=== PATIENT | female | born 1985 | race African-American/Black ===

== ENCOUNTER 2017-07-24 14:21 | Emergency (ER) | payer OTHER ==
[~2017-07-24] VITALS: Ht 165.1 cm; Wt 63.5 kg
[~2017-07-24 14:21] MED LIST: ACET325T9 PO; ASPI-621 PO; AZIT250T6 PO; PRED20TA PO
[2017-07-24] MEDS ORDERED: IBUPROFEN 800 MG TABLET. PO ONE (15:15)
[2017-07-24 15:30] VITALS: BP 123/77
[2017-07-24 15:32] LABS: INFLUENZA A PATIENT POSITIVE (NEGATIVE); INFLUENZA B PATIENT NEGATIVE (NEGATIVE)
--- NOTE | 2017-07-24 15:34 | PHYS DOC ---
Past History Past Medical History: Cancer, Other Past Surgical History: , Tubal ligation, Other Smoking: Non-smoker Alcohol Use: None Drug Use: None Adult General Chief Complaint Chief Complaint: FLU SYMPTOM HPI HPI 31-year-old female patient complaining of nasal congestion and cough and myalgia with fever up to 102.4 for the last 2.5 days that gradually getting worse. Patient complaining of one episode of vomiting last night. Patient states she had sick contacts with flu at home. Patient denies diarrhea, abdominal pain, urinary symptom, . Review of Systems Review of Systems Constitutional: Reports fever and chills Eyes: Denies change in visual acuity, redness, or eye pain [] HENT: Reports shortness of breath, reports cough[] Cardiovascular: No additional information not addressed in HPI [] GI: Denies abdominal pain, bloody stools or diarrhea , reports nausea and vomiting[] : Denies dysuria or hematuria [] Musculoskeletal: Denies back pain or joint pain , reports myalgia Integument: Denies rash or skin lesions [] Neurologic: Denies headache, focal weakness or sensory changes [] Endocrine: Denies polyuria or polydipsia [] All other systems were reviewed and found to be within normal limits, except as documented in this note. Current Medications Current Medications Current Medications Medications (Trade) Dose Ordered Sig/Jenelle Start Time Stop Time Status Last Admin Dose Admin Ibuprofen (Motrin) 800 mg 1X ONCE 07/24/17 15:15 07/24/17 15:17 DC 07/24/17 15:15 800 MG Allergies Allergies Allergies Coded Allergies Type Severity Reaction Last Updated Verified iodine Allergy Intermediate hives/burning feeling/itch 01/23/14 Yes Physical Exam Physical Exam Constitutional: Well developed, well nourished, mild distress, non-toxic appearance. [] HENT: Normocephalic, atraumatic, bilateral external ears normal, pharyngeal erythema, oropharynx moist, no oral exudates, nose normal. [] Eyes: PERRLA, EOMI, conjunctiva normal, no discharge. [] Neck: Normal range of motion, no tenderness, supple, no stridor. [] Cardiovascular:Heart rate regular rhythm, no murmur [] Lungs & Thorax: Bilateral breath sounds clear to auscultation [] Abdomen: Bowel sounds normal, soft, no tenderness, no masses, no pulsatile masses. [] Skin: Warm, dry, no erythema, no rash. [] Back: No tenderness, no CVA tenderness. [] Extremities: No tenderness, no cyanosis, no clubbing, ROM intact, no edema. [] Neurologic: Alert and oriented X 3, normal motor function, normal sensory function, no focal deficits noted. [] Psychologic: Affect normal, judgement normal, mood normal. [] Current Patient Data Vital Signs Vital Signs Date Time Temp Pulse Resp B/P (MAP) Pulse Ox O2 Delivery O2 Flow Rate FiO2 07/24/17 15:00 89 16 107/69 (82) 99 Room Air 07/24/17 14:30 98.3 EKG EKG [] Radiology/Procedures Radiology/Procedures [] Course & Med Decision Making Course & Med Decision Making Pertinent Labs reviewed. (See chart for details) Evaluation of patient in ER showed 31-year-old female patient with flulike symptom and exposure to flu presented to ER. Patient had positive for a test and treated with ibuprofen in ER. Plan discharge patient home with prescription of Tussionex and Tamiflu.[] Dragon Disclaimer Dragon Disclaimer This electronic medical record was generated, in whole or in part, using a voice recognition dictation system. Departure Departure: Impression: Primary Impression: Influenza A Disposition: HOME, SELF-CARE (At 1556) Condition: IMPROVED Referrals: CONI SILVESTRE MD (PCP) Patient Instructions: Influenza A (H1N1) Additional Instructions: Drink plenty of liquids Follow-up with your primary care physician in 3-5 days Return to ER if not getting better Scripts Hydrocodone/Chlorphen P-Stirex (Tussionex Pennkinetic Susp) 115 Ml Hanh.er.12h 5 ML PO BID for COUGH for 5 Days, #120 ML Prov: ORTEGA HUYNH MD 07/24/17 Oseltamivir Phosphate (TAMIFLU) 75 Mg Capsule 1 CAP PO BID, #10 CAP Prov: ORTEGA HUYNH MD 07/24/17 ORTEGA HUYNH MD Jul 24, 2017 15:34
[2017-07-24] MEDS ORDERED: OSEL75CA PO (15:38)
[2017-07-24] MEDS ORDERED: HYDR115S2 PO (15:38)
== END 2017-07-24 15:42 | disposition home or self-care (01) ==
LOC: ER 14:21
DX: J09.X2 Influenza due to identified novel influenza A virus with other respiratory manifestations (principal); Z91.041 Radiographic dye allergy status
CPT/HCPCS: 87804; 99284

== ENCOUNTER → 2018-11-02 | Outpatient (CLI) | payer OTHER ==
[~2018-11-02] MED LIST changes: +HYDR115S2 PO; +OSEL75CA PO
--- NOTE | 2018-11-02 16:40 | RAD ---
Right groin ultrasound, 11/02/2018: HISTORY: Groin pain and swelling The area of clinical concern was carefully scanned. No mass or unusual fluid collection is seen. Several small elongated lymph nodes are present at the right groin. The largest of these measures 3.4 x 0.7 cm and is not considered to be pathologically enlarged. There is a borderline enlarged left inguinal node measuring 2.2 x 1.2 x 1.1 cm. IMPRESSION: No significant right groin abnormality is detected. Electronically signed by: Mack rOtega MD (11/02/2018 4:38 PM) [facility]
--- NOTE | 2018-11-02 16:42 | RAD ---
Pelvic ultrasound, 11/02/2018: History: Pelvic pain Transabdominal and transvaginal scans were obtained. The uterus measures 8.8 x 4.1 x 4.3 cm. A normal central uterine echo is evident. The ovaries are of normal size. There are small follicular cysts in both ovaries. No adnexal mass is seen. A small amount of simple fluid is evident in the cul-de-sac. This amount of fluid can be on a physiologic basis. IMPRESSION: 1. Small amount of free fluid in the pelvis. 2. The pelvic ultrasound is otherwise unremarkable.
== END | disposition home or self-care (01) ==
LOC: US 14:31
PROVIDERS: ATTEND Physician Assistant
DX: N83.02 Follicular cyst of left ovary (principal); N83.01 Follicular cyst of right ovary; R59.0 Localized enlarged lymph nodes
CPT/HCPCS: 76830; 76856; 76882